=== PATIENT | male | born 1950 | race Caucasian/White ===

== ENCOUNTER → 2016-07-12 | Outpatient (CLI) | payer OTHER, MEDICARE ==
--- NOTE | 2016-07-12 10:04 | DX ---
Chest, Two Views at 0851 hours History: Cough. Comparison: May 2010. Findings: Cardiac silhouette is within normal range. Bilateral peribronchial thickening with linear s ubsegmental atelectasis or scarring in the right middle lobe. No pneumonia, congestive heart failure, pleural effusion, or pneumothorax. Impression: 1. Bronchitis. 2. Linear subsegmental atelectasis or scarring in the right middle lobe, new since previous study. 3. No definite pneumonia.
== END ==
LOC: BMCIMAGING 08:54
PROVIDERS: ATTEND Family Medicine
DX: J40 Bronchitis, not specified as acute or chronic (principal)

== ENCOUNTER → 2017-06-07 | Outpatient (CLI) | payer OTHER, MEDICARE | LOC: BMCIMAGING 16:27 | PROVIDERS: ATTEND Family Medicine | DX: R05 Cough (principal); R06.02 Shortness of breath; J98.11 Atelectasis; J98.8 Other specified respiratory disorders ==

== ENCOUNTER → 2018-06-22 | Outpatient (CLI) | payer OTHER, MEDICARE | LOC: FIMAGING 10:42 | PROVIDERS: ATTEND Psychiatry & Neurology Neurology | DX: R06.81 Apnea, not elsewhere classified (principal); G47.00 Insomnia, unspecified ==